=== PATIENT | female | born 2000 | race Caucasian/White ===

== ENCOUNTER 2023-04-23 12:53 | Emergency (ER) | payer OTHER ==
[~2023-04-23] VITALS: Ht 162.6 cm; Wt 56.8 kg
[2023-04-23 16:44] VITALS: BP 135/84; TEMP 98.5; O2SAT 100
== END 2023-04-23 16:47 | disposition home or self-care (01) ==
LOC: M ED 12:53 → EDBD 12:53 → M ED 16:47
DX: T75.4XXA Electrocution, initial encounter (principal); Y93.89 Activity, other specified; Y99.0 Civilian activity done for income or pay; F41.9 Anxiety disorder, unspecified; F17.200 Nicotine dependence, unspecified, uncomplicated; Z88.0 Allergy status to penicillin